=== PATIENT | female | born 1930 | race Caucasian/White ===

== ENCOUNTER 2016-10-30 12:29 | Emergency (ER) | payer MEDICARE, BC ==
[2016-10-30] MEDS ORDERED: Sodium Chloride 0.9% 10 ML Syringe FLUSH PRN (13:40)
[2016-10-30] MEDS ORDERED: Lactated Ringers 1,000 ML IV SCH (13:45)
--- NOTE | 2016-10-30 13:45 | EDM.PDOC ---
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 She denies any fevers shortness of breath or chest pain he does have intermittent bouts of diarrhea has started new medications digoxin earlier this year in April in 2 weeks ago she was started on glipizide - Related Data Allergies Allergy/AdvReac Type Severity Reaction Status Date / Time erythromycin base Allergy Cannot Verified 10/30/16 12:52 [Erythromycin Base] Remember lisinopril Allergy Cannot Verified 10/30/16 12:52 Remember moxifloxacin HCl Allergy Cannot Verified 10/30/16 12:52 [From Avelox] Remember nitrofurantoin Allergy Cannot Verified 10/30/16 12:52 macrocrystalline Remember [From Macrodantin] Penicillins Allergy Cannot Verified 10/30/16 12:52 Remember simvastatin [From Zocor] Allergy Cannot Verified 10/30/16 12:52 Remember sitagliptin phosphate Allergy Headache Verified 10/30/16 12:52 [From Januvia] sulfamethoxazole Allergy Cannot Verified 10/30/16 12:52 [From Bactrim] Remember trimethoprim [From Bactrim] Allergy Cannot Verified 10/30/16 12:52 Remember banana [Banana] AdvReac Nausea and Verified 10/30/16 12:52 Vomiting Home Meds: Home Meds Aspirin [Adult Low Dose Aspirin EC] 81 mg PO ASDIRECTED PRN 11/28/13 [History] Hydrochlorothiazide 25 mg PO DAILY 11/28/13 [History] Cyanocobalamin (Vitamin B-12) [B-12] 1,000 mcg PO QAM 05/22/16 [History] Ergocalciferol (Vitamin D2) [Vitamin D] 1,000 unit PO DAILY 05/22/16 [History] Omeprazole 20 mg PO DAILY 05/22/16 [History] Digoxin 125 mcg PO DAILY #30 tablet 05/29/16 [Rx] Metoprolol Tartrate [Lopressor] 25 mg PO Q12H #60 tablet 05/29/16 [Rx] Ciprofloxacin HCl [Cipro] 250 mg PO BID #14 tablet 10/30/16 [Rx] Ondansetron [Zofran] 8 mg PO ASDIRECTED PRN 10/30/16 [History] glipiZIDE [Glucotrol] 5 mg PO DAILY 10/30/16 [History] metFORMIN [Glucophage] 1,000 mg PO BID 10/30/16 [History] Past Medical History HEENT History: Reports: Hard of Hearing Cardiovascular History: Reports: Hypertension Gastrointestinal History: Reports: GERD 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: Endocrine/Metabolic History: Reports: Diabetes, Type II Other Endocrine/Metabolic History: hypercalcemia Oncologic (Cancer) History: Reports: Colon (Carcinoid) - Infectious Disease History Infectious Disease History: Reports: Shingles - Past Surgical History GI Surgical History: Reports: Colon Other GI Surgeries/Procedures: HX OF COLON CA Social & Family History - Family History Family Medical History: Unobtainable - Tobacco Use Smoking Status *Q: Never Smoker - Caffeine Use Caffeine Use: Reports: Coffee, Soda - Alcohol Use Days Per Week of Alcohol Use: 0 - Recreational Drug Use Recreational Drug Use: No ED ROS GENERAL - Review of Systems Review Of Systems: See Below Constitutional: Reports: Weakness. Denies: Fever, Chills HEENT: Reports: No Symptoms Respiratory: Reports: No Symptoms Cardiovascular: Reports: No Symptoms GI/Abdominal: Reports: Abdominal Pain, Diarrhea, Nausea, Vomiting : Reports: No Symptoms Musculoskeletal: Reports: No Symptoms Skin: Reports: No Symptoms ED EXAM, GI/ABD - Physical Exam Exam: See Below Text/Narrative:: General: Elderly female, not in any distress, alert and oriented x3 HEENT: head is atraumatic normocephalic, eyes pupils equal round reactive to light, sclera clear no conjunctivitis appreciated. Ears tympanic membranes clear and schultz landmarks and light reflex are present bilaterally canals are clear. Nose no septal deviation, nares are clear, no blood present. Mouth mucosa is moist and pink no erythema or exudate noted in soft palate, tongue is midline uvula is midline, dentition is intact. Neck: Supple no thyromegaly no tracheal deviation. Nodes: Cervical nodes subclavicular nodes nontender no palpable lymphadenopathy noted. Lungs: clear to auscultation bilaterally with symmetrical respirations, no adventitious noise appreciated. CV: Regular rate and rhythm S1 and S2 appreciated no murmurs rubs or gallops noted. Abdomen: Soft, tender epigastric region, no palpable masses or organomegaly appreciated, no distention no guarding bowel sounds are present, . Neuro: Cranial nerves II through XII grossly intact Skin: Warm and dry, intact Extremities: No lower extremity edema appreciated . Course - Vital Signs Last Recorded V/S: Last Vital Signs Temp 95.9 F 10/30/16 13:14 Pulse 77 10/30/16 13:14 Resp 24 H 10/30/16 13:14 BP 159/86 H 10/30/16 13:14 Pulse Ox 97 10/30/16 13:14 - Orders/Labs/Meds Orders: Active Orders 24 hr Category Date Time Status Peripheral IV Care [RC] . DIRECTED Care 10/30/16 13:41 Active CULTURE URINE [RM] Urgent Lab 10/30/16 14:37 Received Lactated Ringers [Ringers, Lactated] 1,000 ml Med 10/30/16 13:45 Active IV ASDIRECTED Sodium Chloride 0.9% [Saline Flush] Med 10/30/16 13:40 Active 10 ml FLUSH ASDIRECTED PRN Peripheral IV Insertion Adult [OM.PC] Urgent Oth 10/30/16 13:40 Ordered Medication Orders Lactated Ringer's (Ringers, Lactated) 1,000 mls @ 500 mls/hr IV ASDIRECTED [facility] Last Admin: 10/30/16 14:06 Dose: 500 mls/hr Sodium Chloride (Saline Flush) 10 ml FLUSH ASDIRECTED PRN PRN Reason: Keep Vein Open Labs: Laboratory Tests 10/30/16 10/30/16 10/30/16 Range/Units 13:52 14:00 14:00 WBC 9.9 (4.5-11.0) K/uL RBC 4.07 (3.30-5.50) M/uL Hgb 11.8 L (12.0-15.0) g/dL Hct 35.7 L (36.0-48.0) % MCV 88 (80-98) fL MCH 29 (27-31) pg MCHC 33 (32-36) % Plt Count 215 (150-400) K/uL Neut % (Auto) 58 (36-66) % Lymph % (Auto) 26 (24-44) % [place] % (Auto) 11 H (2-6) % Eos % (Auto) 4 (2-4) % Baso % (Auto) 1 (0-1) % Sodium 132 L (140-148) mmol/L Potassium 4.2 (3.6-5.2) mmol/L Chloride 95 L (100-108) mmol/L Carbon Dioxide 28 (21-32) mmol/L Anion Gap 13.2 (5.0-14.0) mmol/L BUN 22 H (7-18) mg/dL Creatinine 1.3 H (0.6-1.0) mg/dL Est Cr Clr Drug Dosing 19.25 mL/min Estimated GFR (MDRD) 39 L (>60) Glucose 155 H (74-106) mg/dL Lactic Acid (0.4-2.0) mmol/L Calcium 10.2 H (8.5-10.1) mg/dL Total Bilirubin 0.4 (0.2-1.0) mg/dL AST 19 (15-37) U/L ALT 25 (12-78) U/L Alkaline Phosphatase 63 (46-116) U/L Total Protein 9.0 H (6.4-8.2) g/dL Albumin 3.6 (3.4-5.0) g/dL Globulin 5.4 H (2.3-3.5) g/dL Albumin/Globulin Ratio 0.7 L (1.2-2.2) Urine Color Yellow Urine Appearance Turbid Urine pH 5.0 (4.5-8.0) Ur Specific [place] 1.020 (1.008-1.030) Urine Protein Negative (NEGATIVE) mg/dL Urine Glucose (UA) Normal (NEGATIVE) mg/dL Urine Ketones Negative (NEGATIVE) mg/dL Urine Occult Blood Negative (NEGATIVE) Urine Nitrite Negative (NEGATIVE) Urine Bilirubin Negative (NEGATIVE) Urine Urobilinogen Normal (NORMAL) mg/dL Ur Leukocyte Esterase Moderate (NEGATIVE) Urine RBC 10-20 H (0-5) Urine WBC Packed H (0-5) Ur Epithelial Cells Few Amorphous Sediment Few Urine Bacteria Many Urine Mucus Few 07/12/17 Range/Units 14:00 WBC (4.5-11.0) K/uL RBC (3.30-5.50) M/uL Hgb (12.0-15.0) g/dL Hct (36.0-48.0) % MCV (80-98) fL MCH (27-31) pg MCHC (32-36) % Plt Count (150-400) K/uL Neut % (Auto) (36-66) % Lymph % (Auto) (24-44) % [place] % (Auto) (2-6) % Eos % (Auto) (2-4) % Baso % (Auto) (0-1) % Sodium (140-148) mmol/L Potassium (3.6-5.2) mmol/L Chloride (100-108) mmol/L Carbon Dioxide (21-32) mmol/L Anion Gap (5.0-14.0) mmol/L BUN (7-18) mg/dL Creatinine (0.6-1.0) mg/dL Est Cr Clr Drug Dosing mL/min Estimated GFR (MDRD) (>60) Glucose (74-106) mg/dL Lactic Acid 2.3 H (0.4-2.0) mmol/L Calcium (8.5-10.1) mg/dL Total Bilirubin (0.2-1.0) mg/dL AST (15-37) U/L ALT (12-78) U/L Alkaline Phosphatase (46-116) U/L Total Protein (6.4-8.2) g/dL Albumin (3.4-5.0) g/dL Globulin (2.3-3.5) g/dL Albumin/Globulin Ratio (1.2-2.2) Urine Color Urine Appearance Urine pH (4.5-8.0) Ur Specific [place] (1.008-1.030) Urine Protein (NEGATIVE) mg/dL Urine Glucose (UA) (NEGATIVE) mg/dL Urine Ketones (NEGATIVE) mg/dL Urine Occult Blood (NEGATIVE) Urine Nitrite (NEGATIVE) Urine Bilirubin (NEGATIVE) Urine Urobilinogen (NORMAL) mg/dL Ur Leukocyte Esterase (NEGATIVE) Urine RBC (0-5) Urine WBC (0-5) Ur Epithelial Cells Amorphous Sediment Urine Bacteria Urine Mucus Meds: Medications Generic Name Dose Route Start Last Admin Trade Name Freq PRN Reason Stop Dose Admin Lactated Ringer's 1,000 mls @ 500 mls/hr 10/30/16 13:45 10/30/16 14:06 Ringers, Lactated IV 500 mls/hr ASDIRECTED NELY Administration Sodium Chloride 10 ml 10/30/16 13:40 Saline Flush FLUSH ASDIRECTED PRN Keep Vein Open Discontinued Medications Generic Name Dose Route Start Last Admin Trade Name Marcos PRN Reason Stop Dose Admin Sodium Chloride 100 mls @ 3.5 mls/sec 10/30/16 14:30 Normal Saline IV 10/30/16 15:00 ASDIRECTED NELY Iopamidol 100 ml 10/30/16 14:16 Isovue-300 (61%) IV 10/30/16 15:00 . DIRECTED PRN RADIOLOGY EXAM Departure - Departure Time of Disposition: 15:35 Disposition: Home, Self-Care 01 Condition: Fair Clinical Impression: Urinary tract infection with hematuria Qualifiers: Urinary tract infection type: acute cystitis Qualified Code(s): N30.01 - Acute cystitis with hematuria - Discharge Information Prescriptions: Ciprofloxacin HCl [Cipro] 250 mg PO BID #14 tablet Forms: ED Department Discharge Additional Instructions: Take full course of antibiotics, Please followup with your primary care provider in 3-5 days if not better, please call return to the emergency department with worsening of symptoms. - My Orders Last 24 Hours: My Active Orders 10/30/16 13:40 Sodium Chloride 0.9% [Saline Flush] 10 ml FLUSH ASDIRECTED PRN Peripheral IV Insertion Adult [OM.PC] Urgent 10/30/16 13:41 Peripheral IV Care [RC] . DIRECTED 10/30/16 13:45 Lactated Ringers [Ringers, Lactated] 1,000 ml IV ASDIRECTED 10/30/16 14:37 CULTURE URINE [RM] Urgent - Assessment/Plan Last 24 Hours: My Active Orders 10/30/16 13:40 Sodium Chloride 0.9% [Saline Flush] 10 ml FLUSH ASDIRECTED PRN Peripheral IV Insertion Adult [OM.PC] Urgent 10/30/16 13:41 Peripheral IV Care [RC] . DIRECTED 10/30/16 13:45 Lactated Ringers [Ringers, Lactated] 1,000 ml IV ASDIRECTED 10/30/16 14:37 CULTURE URINE [RM] Urgent Plan: Assessment Acuity = acute Site and laterality = urinary tract infection complicated in a patient with known history of carcinoid tumor status post resection Etiology = bacterial cause Manifestations = nausea vomiting Location of injury = Home Lab values = hemoglobin low 11.8 consistent with normochromic anemia, sodium low at 132 consistent hyponatremia creatinine low at 1.3 consistent with chronic renal failure stage GIV lactic acid elevated at 2.3 consistent lactic acidosis urinalysis reveals rbc's 10-20 consistent with hematuria WBCs packed consistent with pyuria cultures pending, CT abdomen scan shows no acute process Plan I did review lab work CT scan results with them, elected treat with Cipro 250 by mouth twice a day 3 days she does have multiple drug allergies allergy listed to moxifloxacin patient cannot remember I discussed this with family they felt it was worth a try with the ciprofloxacin, follow-up with primary care 3-5 days if no improvement Patient was in agreement with the plan all questions were answered, they were instructed to return to the emergency department or call for worsening symptoms. This note was dictated using [employer] voice recognition software please call with any questions.
[2016-10-30] MEDS ORDERED: Iopamidol 612 MG/ML 100 ML Bottle IV PRN (14:16)
[2016-10-30] MEDS ORDERED: Sodium Chloride 0.9% 100 ML IV SCH (14:30)
--- NOTE | 2016-10-30 14:55 | CT ---
Abdomen Pelvis wo Cont Total DLP 367 mGycm. INDICATION: epigastric pain COMPARISON: CT 05/22/2016 FINDINGS: Large hiatal hernia containing peritoneal fat and the majority of the stomach. Postoperati ve changes right hemicolectomy. Cholelithiasis. Sigmoid diverticula. Diffuse osteopenia. Scattered d egenerative changes. Bilateral sacroiliitis. Patchy infiltrates in the lung bases have resolved sinc e prior exam. Presumed left renal cysts. Exam otherwise unremarkable. IMPRESSION: Stable large hiatal hernia. Interval resolution of infiltrates in the lung bases.
[2016-10-30 16:01] VITALS: BP 149/67
== END 2016-10-30 16:05 | disposition home or self-care (01) ==
LOC: JP.ED 12:29
DX: N30.01 Acute cystitis with hematuria (principal); E11.9 Type 2 diabetes mellitus without complications; I10 Essential (primary) hypertension; K21.9 Gastro-esophageal reflux disease without esophagitis; E83.52 Hypercalcemia; Z85.038 Personal history of other malignant neoplasm of large intestine; Z79.899 Other long term (current) drug therapy; Z91.018 Allergy to other foods; Z88.2 Allergy status to sulfonamides; Z88.1 Allergy status to other antibiotic agents; Z88.0 Allergy status to penicillin; Z88.8 Allergy status to other drugs, medicaments and biological substances; Z79.84 Long term (current) use of oral hypoglycemic drugs
CPT/HCPCS: 36415; 74176; 80053; 81001; 83605; 85025; 87086; 87088; 87186; 96360; 96361; 99284; J7120; 99283

== ENCOUNTER 2016-11-02 10:12 | Emergency (ER) | payer MEDICARE, BC ==
[2016-11-02] MEDS ORDERED: Ondansetron 4 MG/2 ML SDV IVPUSH ONE (12:12)
[2016-11-02] MEDS ORDERED: Sodium Chloride 0.9% 1,000 ML IV SCH (12:15)
--- NOTE | 2016-11-02 12:16 | EDM.PDOC ---
[id number] [id number] NAUSEA, DIARRHEA Time Seen by Provider: 11/02/16 11:56 Source of Information: Reports: Patient History Limitations: Reports: No Limitations - History of Present Illness INITIAL COMMENTS - FREE TEXT/NARRATIVE: 86 yo female presents to clinic with nausea and vomiting. Last vomited yesterday. Did feel nauseated this AM but states she is hungry at present. She was seen 4 days ago dx with UTI and placed on Cipro. Pt has had nausea with antibiotics in the past. Pt last had cipro yesterday morning. daughter is present with pt and she states that she is a vary poor eater. Pt denies fever, chills, ABD pain or general ill feeling. Last BM was this AM and it was diarrhea - Related Data Allergies Allergy/AdvReac Type Severity Reaction Status Date / Time erythromycin base Allergy Cannot Verified 10/30/16 12:52 [Erythromycin Base] Remember lisinopril Allergy Cannot Verified 10/30/16 12:52 Remember moxifloxacin HCl Allergy Cannot Verified 10/30/16 12:52 [From Avelox] Remember nitrofurantoin Allergy Cannot Verified 10/30/16 12:52 macrocrystalline Remember [From Macrodantin] Penicillins Allergy Cannot Verified 10/30/16 12:52 Remember simvastatin [From Zocor] Allergy Cannot Verified 10/30/16 12:52 Remember sitagliptin phosphate Allergy Headache Verified 10/30/16 12:52 [From Januvia] sulfamethoxazole Allergy Cannot Verified 10/30/16 12:52 [From Bactrim] Remember trimethoprim [From Bactrim] Allergy Cannot Verified 10/30/16 12:52 Remember banana [Banana] AdvReac Nausea and Verified 10/30/16 12:52 Vomiting Home Meds: Home Meds Aspirin [Adult Low Dose Aspirin EC] 81 mg PO ASDIRECTED PRN 11/28/13 [History] Hydrochlorothiazide 25 mg PO DAILY 11/28/13 [History] Cyanocobalamin (Vitamin B-12) [B-12] 1,000 mcg PO QAM 05/22/16 [History] Ergocalciferol (Vitamin D2) [Vitamin D] 1,000 unit PO DAILY 05/22/16 [History] Omeprazole 20 mg PO DAILY 05/22/16 [History] Digoxin 125 mcg PO DAILY #30 tablet 05/29/16 [Rx] Metoprolol Tartrate [Lopressor] 25 mg PO Q12H #60 tablet 05/29/16 [Rx] Ciprofloxacin HCl [Cipro] 250 mg PO BID #14 tablet 10/30/16 [Rx] Ondansetron [Zofran] 8 mg PO Q8HR PRN 10/30/16 [History] glipiZIDE [Glucotrol] 5 mg PO DAILY 10/30/16 [History] metFORMIN [Glucophage] 1,000 mg PO BID 10/30/16 [History] Acetaminophen [Tylenol] 650 mg PO ASDIRECTED PRN 11/02/16 [History] Past Medical History HEENT History: Reports: Hard of Hearing Cardiovascular History: Reports: Hypertension Gastrointestinal History: Reports: GERD, Other (See Below) Other Gastrointestinal History: nausea 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: Endocrine/Metabolic History: Reports: Diabetes, Type II Other Endocrine/Metabolic History: hypercalcemia Oncologic (Cancer) History: Reports: Colon - Infectious Disease History Infectious Disease History: Reports: Chicken Pox - Past Surgical History GI Surgical History: Reports: Colon Other GI Surgeries/Procedures: HX OF COLON CA Social & Family History - Family History Family Medical History: Unobtainable - Tobacco Use Smoking Status *Q: Never Smoker - Caffeine Use Caffeine Use: Reports: Coffee, Soda - Alcohol Use Days Per Week of Alcohol Use: 0 - Recreational Drug Use Recreational Drug Use: No ED ROS GENERAL - Review of Systems Review Of Systems: See Below Constitutional: Denies: Fever, Chills Respiratory: Denies: Shortness of Breath, Wheezing Cardiovascular: Denies: Chest Pain GI/Abdominal: Reports: Anorexia, Nausea, Vomiting. Denies: Abdominal Pain ED EXAM, GENERAL - Physical Exam Exam: See Below Exam Limited By: No Limitations General Appearance: Alert, WD/WN, No Apparent Distress Head: Atraumatic, Normocephalic Neck: Normal Inspection, Supple, Non-Tender, Full Range of Motion Respiratory/Chest: No Respiratory Distress, Lungs Clear, Normal Breath Sounds. No: Crackles, Rhonchi, Wheezing Cardiovascular: Normal Peripheral Pulses, Regular Rate, Rhythm GI/Abdominal: Normal Bowel Sounds, Soft, Non-Tender, No Organomegaly Neurological: Alert, Oriented Psychiatric: Normal Affect, Normal Mood Skin Exam: Warm, Dry, Intact Course - Vital Signs Last Recorded V/S: Last Vital Signs Temp 35.7 C 11/02/16 15:33 Pulse 68 11/02/16 13:30 Resp 15 11/02/16 13:30 BP 135/70 11/02/16 15:33 Pulse Ox 90 L 11/02/16 13:30 - Orders/Labs/Meds Labs: Laboratory Tests 11/02/16 11/02/16 11/02/16 Range/Units 12:43 12:43 15:09 WBC 8.2 (4.5-11.0) K/uL RBC 4.00 (3.30-5.50) M/uL Hgb 11.8 L (12.0-15.0) g/dL Hct 35.0 L (36.0-48.0) % MCV 88 (80-98) fL MCH 30 (27-31) pg MCHC 34 (32-36) % Plt Count 248 (150-400) K/uL Neut % (Auto) 48 (36-66) % Lymph % (Auto) 38 (24-44) % [place] % (Auto) 10 H (2-6) % Eos % (Auto) 4 (2-4) % Baso % (Auto) 0 (0-1) % Sodium 131 L (140-148) mmol/L Potassium 3.9 (3.6-5.2) mmol/L Chloride 94 L (100-108) mmol/L Carbon Dioxide 27 (21-32) mmol/L Anion Gap 13.9 (5.0-14.0) mmol/L BUN 18 (7-18) mg/dL Creatinine 1.5 H (0.6-1.0) mg/dL Est Cr Clr Drug Dosing 16.52 mL/min Estimated GFR (MDRD) 33 L (>60) Glucose 137 H (74-106) mg/dL Calcium 9.7 (8.5-10.1) mg/dL Total Bilirubin 0.5 (0.2-1.0) mg/dL AST 16 (15-37) U/L ALT 24 (12-78) U/L Alkaline Phosphatase 57 (46-116) U/L Total Protein 8.6 H (6.4-8.2) g/dL Albumin 3.4 (3.4-5.0) g/dL Globulin 5.2 H (2.3-3.5) g/dL Albumin/Globulin Ratio 0.7 L (1.2-2.2) Urine Color Yellow Urine Appearance Cloudy Urine pH 5.0 (4.5-8.0) Ur Specific [place] 1.020 (1.008-1.030) Urine Protein Negative (NEGATIVE) mg/dL Urine Glucose (UA) Normal (NEGATIVE) mg/dL Urine Ketones Negative (NEGATIVE) mg/dL Urine Occult Blood Negative (NEGATIVE) Urine Nitrite Negative (NEGATIVE) Urine Bilirubin Negative (NEGATIVE) Urine Urobilinogen Normal (NORMAL) mg/dL Ur Leukocyte Esterase Negative (NEGATIVE) Urine RBC 0-5 (0-5) Urine WBC 5-10 H (0-5) Ur Epithelial Cells Moderate Amorphous Sediment Few Urine Bacteria Few Urine Mucus Moderate Meds: Medications Discontinued Medications Generic Name Dose Route Start Last Admin Trade Name Freq PRN Reason Stop Dose Admin Diphenhydramine HCl 12.5 mg 11/02/16 13:34 11/02/16 14:17 Benadryl IVPUSH 11/02/16 13:35 12.5 mg ONETIME ONE Administration Sodium Chloride 1,000 mls @ 500 mls/hr 11/02/16 12:15 11/02/16 12:43 Normal Saline IV 500 mls/hr ASDIRECTED NELY Administration Ceftriaxone Sodium 1 gm/ 50 mls @ 100 mls/hr 11/02/16 13:27 11/02/16 14:21 Sodium Chloride IV 11/02/16 13:56 100 mls/hr ONETIME ONE Administration Ondansetron HCl 4 mg 11/02/16 12:12 11/02/16 12:47 Zofran IVPUSH 11/02/16 12:13 4 mg ONETIME ONE Administration - Re-Assessments/Exams Free Text/Narrative Re-Assessment/Exam: 11/02/16 22:04 Pt evaluated on arrival and stated that she was hungry, daughter is present with pt and states that she vomited multiple times yesterday severely nauseated daughter held Cipro last evening and this morning and nausea has greatly improved. while in ER pt ate apple sauce and part of a sandwich tolerated it very well. DOse of IV rocephin was given to treat UTI and will DC cipro. pt encouraged to drink fluids and increase caloric intake. Order was given to increase ensure to three times per day. pt will follow-up with primary care provider or return if symptoms return Departure - Departure Time of Disposition: 15:48 Disposition: Home, Self-Care 01 Condition: Good Clinical Impression: Nausea & vomiting Qualifiers: Vomiting type: unspecified Vomiting Intractability: non-intractable Qualified Code(s): R11.2 - Nausea with vomiting, unspecified - Discharge Information Instructions: Nausea, Adult Referrals: Toby Diaz MD [Primary Care Provider] - Forms: ED Department Discharge Additional Instructions: DC cipro, IV antibiotics were given in ER encourage fluid intake increase ensure to three times per day with as needed fourth bottle
[2016-11-02] MEDS ORDERED: cefTRIAXone 1 GM in Sodium Chloride 0.9% 50 ML IV ONE (13:27)
[2016-11-02] MEDS ORDERED: diphenhydrAMINE 50 MG/ML SDV IVPUSH ONE (13:34)
[2016-11-02 15:33] VITALS: BP 135/70
== END 2016-11-02 16:09 | disposition home or self-care (01) ==
LOC: JP.ED 10:12
DX: R11.2 Nausea with vomiting, unspecified (principal); N39.0 Urinary tract infection, site not specified; I10 Essential (primary) hypertension; K21.9 Gastro-esophageal reflux disease without esophagitis; E11.9 Type 2 diabetes mellitus without complications; E83.52 Hypercalcemia; Z85.038 Personal history of other malignant neoplasm of large intestine; Z79.82 Long term (current) use of aspirin; Z79.84 Long term (current) use of oral hypoglycemic drugs; Z79.899 Other long term (current) drug therapy; Z88.1 Allergy status to other antibiotic agents; Z88.0 Allergy status to penicillin; Z88.2 Allergy status to sulfonamides; Z88.8 Allergy status to other drugs, medicaments and biological substances
CPT/HCPCS: 36415; 80053; 81001; 85025; 96361; 96374; 96375; 99284; J0696; J1200; J2405; J7040; J7050; 99283